=== PATIENT | female | born 1985 | race Caucasian/White ===

== ENCOUNTER → 2019-11-18 09:15 | Outpatient (CLI) | payer BC, SELFPAY ==
[2019-11-18 09:03] VITALS: BMI 45.0
--- NOTE | 2019-11-18 09:16 | RAD_ITS ---
STUDY: X-RAY CHEST REASON FOR EXAM: Female, 34 years old. Cough and fever TECHNIQUE: PA and lateral views of the chest. COMPARISON: None. FINDINGS: The lungs are clear and expanded. There is no demonstrated pleural abnormality. Normal size heart. Normal mediastinum and lori. Normal visualized pulmonary arteries. Normal visualized aortic arch and descending thoracic aorta. Normal visualized thoracic spine. Normal visualized ribs, clavicles, and shoulders. There is no demonstrated abnormality of the visualized soft tissue structures of the upper abdomen. RAD/Chest PA and Lateral IMPRESSION: Normal x-ray examination of the chest. Electronically Signed: Roland Carvajal, at 12:07 EST Tel , Service support ,
== END ==
PROVIDERS: Referring Provider Physician Assistant; Visit Provider Physician Assistant
DX: R05 Cough (principal)
CPT/HCPCS: 71046

== ENCOUNTER → 2021-11-08 16:45 | Outpatient (CLI) | payer BC, SELFPAY | PROVIDERS: Visit Provider Physician Assistant | DX: Z11.52 Encounter for screening for COVID-19 (principal) | CPT/HCPCS: 87635; U0005; U0003 ==

== ENCOUNTER 2021-11-26 16:36 | Outpatient (CLI) | payer BC, SELFPAY | END 2021-11-26 23:59 | disposition short-term general hospital (02) | LOC: LABSPEC 16:38 | PROVIDERS: Referring Provider Physician Assistant; Visit Provider Physician Assistant | DX: U07.1 COVID-19 (principal) | CPT/HCPCS: 87635; U0003; U0005 ==

== ENCOUNTER → 2025-08-09 | Outpatient (CLI) | payer BC, SELFPAY ==
--- NOTE | 2025-08-09 15:54 | MRI_ITS ---
PROCEDURE: LOWER EXT JOINT ONLY (ROUTINE) 08/09/2025 REASON FOR EXAM: POSSIBEL ACL TEAR TECHNIQUE: Procedure Code: MRILEJ Modality: MR Procedure: LOWER EXT JOINT ONLY (ROUTINE) T1, T2, multiplanar and multisequence images of the right knee were obtained without IV contrast administration. COMPARISON: COMPARISON : None FINDINGS: Bone Marrow: There is bony contusion in the posterior and central portion of the medial and lateral tibial plateau. There is subcortical edema in the central portion of the lateral femoral condyle. Cruciate ligaments: There is complete tear of the anterior cruciate ligament with lax components. The posterior cruciate appears intact. Collateral ligaments: There is a edema and attenuation in the mid and upper portion of the medial collateral ligament without laxity, grade 2 sprain. There is thickening and attenuation of the lateral collateral ligament without laxity, grade 2 sprain. The distal biceps tendon and popliteus appear intact. There is a edema and attenuation throughout the arcuate ligament with lax components, grade 2-3 sprain. Menisci: There is a bucket-handle tear of the medial meniscus with a component interposed in the intercondylar region and complex tear components in the remaining portion. The lateral meniscus appears intact. Extensor compartment: The distal quadriceps and patellar tendons appear intact. Effusion: There is a large effusion. MRI/Lower Ext Joint Only (Routine) IMPRESSION: There is bony contusion in the posterior and central portion of the medial and lateral tibial plateau. There is subcortical edema in the central portion of the lateral femoral condyl e. There is complete tear of the anterior cruciate ligament with lax components. There is a edema and attenuation in the mid and upper portion of the medial col lateral ligament without laxity, grade 2 sprain. There is thickening and attenuation of the lateral collateral ligament without laxity, grade 2 sprain. The distal biceps tendon and popliteus appear intact. There is a edema and attenuation throughout the arcuate ligament with lax compo nents, grade 2-3 sprain. There is a bucket-handle tear of the medial meniscus with a component interpose d in the intercondylar region and complex tear components in the remaining portion. There is a large effusion. Reading Location: [facility]
== END | disposition home or self-care (01) ==
LOC: MRI 15:50
PROVIDERS: PCP Physician Assistant; Referring Provider Orthopaedic Surgery Sports Medicine; Visit Provider Orthopaedic Surgery Sports Medicine
DX: M25.561 Pain in right knee (principal)
CPT/HCPCS: 73721

== ENCOUNTER 2025-08-24 08:31 | Day surgery (SDC) | payer BC, SELFPAY ==
--- NOTE | 2025-08-18 16:14 | PAT.ANESEVAL ---
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 When Was Last Pacemaker Check QUESTION #4 FULL TEXT: You/Your Family Experience fever (hyperthermia) with Anesthesia Last Oral Intake Last Oral intake: Last Oral Intake NPO since Meds taken in AM with sips of water? Meds patient instructed to take am of surgery PONV PONV - ambulance mechanic: PONV - ambulance mechanic Female Yes 08/18/25 14:06 HX of Motion Sickness Yes 08/18/25 14:06 HX of N/V After Surgery No 08/18/25 14:06 Non-Smoker No 08/18/25 14:06 Duration of Surgery greater Yes 08/18/25 14:06 than 60 minutes Number of Risk Factors 3 08/18/25 14:06 PONV Score Moderate Risk 08/18/25 14:06 Height & Weight Height & Weight: Anesthesia: Height & Weight Height 5 ft 7 in 07/21/25 13:28 Respiratory Assessment Respiratory Assessment - ambulance mechanic: Respiratory Tract Infection Hx - ambulance mechanic Hx Respiratory Tract Infection No 08/18/25 14:06 STOP Sleep Apnea STOP Sleep Apnea - ambulance mechanic: STOP Sleep Apnea - ambulance mechanic Hx Hypertension Yes: CONTOLLED WITH MED - 08/18/25 14:06 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 Has anyone observed you stop No 08/18/25 14:06 breathing during sleep? STOP Results Negative 08/18/25 14:06 QUESTION #5 FULL TEXT : Do you snore loudly (louder than talking or can be heard through closed doors)? 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 Specify any problems Hx of Preganancy in last 3 N/A 08/18/25 14:06 Months Nurse Filling Out Transfusion NBUCHER 08/18/25 14:06 & Questions: Date: 08/18/25 08/18/25 14:06 Time: 14:08 08/18/25 14:06 Patient unable to answer at this time (ie. confused, unrespo /Reproduction History /Reproductive History - ambulance mechanic: /Reproductive Hx- ambulance mechanic Hx Now No 08/18/25 14:06 Gestational Age (in weeks): EDC: Hx Hx Para Hx Section SAB No 08/18/25 14:06 [facility] Medical History (Updated 08/18/25 @ 15:23 by Yaritza Alejandro) Anxiety Arthritis History of hiatal hernia GERD (gastroesophageal reflux disease) Former smoker History of Holter monitoring Palpitations History of fracture of clavicle Sprain of lateral collateral ligament of right knee MCL sprain of right knee Tear of medial meniscus of right knee Right ACL tear Right knee pain Rectus diastasis Chronic bronchitis HTN (hypertension) Home Medications ?Medication ?Instructions ?Recorded ?Last Taken ?Type atenolol 25 mg tablet 25 mg PO DAILY 11/18/19 Unknown History lisinopril 20 mg tablet 20 mg PO DAILY 11/18/19 Unknown History multivitamin 1 tab PO QAM 01/03/25 Unknown History pantoprazole 40 mg tablet,delayed 40 mg PO QDAY 01/03/25 Unknown History release citalopram 30 mg capsule 30 mg PO QDAY 07/21/25 Unknown History Allergy/AdvReac Type Severity Reaction Status Date / Time No Known Allergies Allergy Verified 08/18/25 14:05 Family History Mother Heart disease Surgical History History of endoscopy Hx of skin graft Social History Smoking Status: Former smoker alcohol intake: current alcohol intake frequency: holidays/special occasions only Audit: Pertinent Findings Pertinent Findings Additional pertinent findings: 07/04/2021. Holter monitor. Base rhythm is sinus rhythm. 41 PACs representing <1% of QRSs. No triplets or runs. 1 isolated PVC representing <1%. No symptomatic events documented. Recommendation Anesthesia Recommendation Anesthesia recommendation: OPTIMIZED for anesthesia
--- NOTE | 2025-08-23 12:49 | EKG12_ITS ---
Test Reason : PRE OP Blood Pressure : */* mmHG Vent. Rate : 57 BPM Atrial Rate : 57 BPM P-R Int : 124 ms QRS Dur : 78 ms QT Int : 444 ms P-R-T Axes : 25 -22 7 degrees QTcB Int : 432 ms Sinus bradycardia with sinus arrhythmia Otherwise normal ECG Confirmed by CAMPOS MCLEOD, JACKIE ([id number]), avid editor BARRY ALLISON ([id number]) on 08/24/2025 8:58:36 AM Referred By: Jamey Heredia Confirmed By: JACKIE GASCA MD
[2025-08-23 13:32] LABS: Hematocrit 45.2 % (37-47); Hemoglobin 15.0 g/dL (12.0-15.0); Mean Corp Hgb Conc 33.2 g/dL (32-36); Mean Corpuscular Volume 90.2 fL (81-99); Mean Platelet Vol. 11.3 fl (6.2-12.0); Platelet Count 255 K/mm3 (150-450); RBC Distribution Width CV 13.9 % (11.6-14.6); RBC Distribution Width SD 46.5 fl (35.1-43.9); Red Blood Count 5.01 M/mm3 (4.2-5.4); White Blood Count 10.8 K/mm3 (4.4-11.0)
[2025-08-23 14:09] LABS: Anion Gap 12 (5-15); BUN 10 mg/dL (4-19); BUN/Creat Ratio 14.7 RATIO (10-20); Calcium,Total 9.4 mg/dL (7.6-11.0); Carbon Dioxide 24.2 mmol/L (21.0-32.0); Chloride 101 mmol/L (98-108); Glucose 103 mg/dL (70-99); Potassium 4.4 mmol/L (3.3-5.1)
--- NOTE | 2025-08-23 14:24 | PAT.ANE_ITS ---
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 When Was Last Pacemaker Check QUESTION #4 FULL TEXT: You/Your Family Experience fever (hyperthermia) with Anesthesia Last Oral Intake Last Oral intake: Last Oral Intake NPO since Meds taken in AM with sips of water? Meds patient instructed to take am of surgery PONV PONV - aco coordinator: PONV - aco coordinator Female Yes 08/18/25 14:06 HX of Motion Sickness Yes 08/18/25 14:06 HX of N/V After Surgery No 08/18/25 14:06 Non-Smoker No 08/18/25 14:06 Duration of Surgery greater Yes 08/18/25 14:06 than 60 minutes Number of Risk Factors 3 08/18/25 14:06 PONV Score Moderate Risk 08/18/25 14:06 Height & Weight Height & Weight: Anesthesia: Height & Weight Height 5 ft 7 in 07/21/25 13:28 Respiratory Assessment Respiratory Assessment - aco coordinator: Respiratory Tract Infection Hx - aco coordinator Hx Respiratory Tract Infection No 08/18/25 14:06 STOP Sleep Apnea STOP Sleep Apnea - aco coordinator: STOP Sleep Apnea - aco coordinator Hx Hypertension Yes: CONTOLLED WITH MED - 08/18/25 14:06 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 Has anyone observed you stop No 08/18/25 14:06 breathing during sleep? STOP Results Negative 08/18/25 14:06 QUESTION #5 FULL TEXT : Do you snore loudly (louder than talking or can be heard through closed doors)? 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 Specify any problems Hx of Preganancy in last 3 N/A 08/18/25 14:06 Months Nurse Filling Out Transfusion [facility]BU[facility]ER 08/18/25 14:06 & Questions: Date: 08/18/25 08/18/25 14:06 Time: 14:08 08/18/25 14:06 Patient unable to answer at this time (ie. confused, unrespo /Reproduction History /Reproductive History - aco coordinator: /Reproductive Hx- aco coordinator Hx Now No 08/18/25 14:06 Gestational Age (in weeks): EDC: Hx Hx Para Hx Section SAB No 08/18/25 14:06 Active Medications Active Medications: Current Medications Generic Name Dose Route Start Last Admin Trade Name Freq PRN Reason Stop Dose Admin Cefazolin Sodium 3 gm/ Sodium 115 mls @ 200 mls/hr 08/24/25 14:30 Chloride IV 08/24/25 15:04 INTRAOP ONE [facility] Medical History Anxiety Arthritis History of hiatal hernia GERD (gastroesophageal reflux disease) Former smoker History of Holter monitoring Palpitations History of fracture of clavicle Sprain of lateral collateral ligament of right knee MCL sprain of right knee Tear of medial meniscus of right knee Right ACL tear Right knee pain Rectus diastasis Chronic bronchitis HTN (hypertension) Home Medications ?Medication ?Instructions ?Recorded ?Last Taken ?Type atenolol 25 mg tablet 25 mg PO DAILY 11/18/19 12/18 07:00 History lisinopril 20 mg tablet 20 mg PO DAILY 11/18/19 09/ History multivitamin 1 tab PO QAM 01/03/25 History pantoprazole 40 mg tablet,delayed 40 mg PO QDAY 08/24/25 07:00 History release citalopram 30 mg capsule 30 mg PO QDAY 07/21/2508/24 07:00 History oxycodone-acetaminophen 5 mg-325 1 tab PO Q4H PRN pain 5 days #20 08/24/25 Unknown Rx mg tablet (Endocet) tabs Allergy/AdvReac Type Severity Reaction Status Date / Time No Known Allergies Allergy Verified 08/18/25 14:05 Family History Mother Heart disease Surgical History History of endoscopy Hx of skin graft Social History Smoking Status: Former smoker alcohol intake: current alcohol intake frequency: holidays/special occasions only Audit: Pertinent Findings HISTORY of Pertinent Findings History of Pertinent Findings: Additional Pertinent Findings Additional pertinent findings 07/04/2021. Holter monitor. 08/18/25 16:23 Base rhythm is sinus rhythm . 41 PACs representing <1% of QRSs. No triplets or runs. 1 isolated PVC representing <1%. No symptomatic events documented. Pertinent Findings EKG Perinent findings: August 23, 2025. Sinus bradycardia 57 bpm with sinus arrhythmia. Otherwise normal EKG. Recommendation Anesthesia Recommendation Anesthesia recommendation: OPTIMIZED for anesthesia
[2025-08-24] VITALS (9 sets, daily range): BP systolic 106–132; BP diastolic 61–96; PULSE 66–76; RESP 16–18; TEMP 36.1–37; O2SAT 95–98; BMI 43.1
[2025-08-24 08:52] LABS: Internal QC Validated? YES +Cl - CLEAR BKGD; Pregnancy, Urine Negative Negative; Record Kit Lot#,Urine Preg 0000980607
[2025-08-24] MEDS: Lactated Ringers 1,000 ML 15 ML IV (09:34)
--- NOTE | 2025-08-24 09:43 | PCM.PRE.AN2 ---
ASA Classification* ASA Classification ASA Classification: 3 (Morbid obesity ) Assessment & Plan Anesthesia* Anesthesia Assessment Anesthesia Assessment: Discussed sedation and/or anesthesia options, risks, benefits, and alternatives with patient/parents/legal guardian/POA. Questions invited. The patient/parents/legal guardian/POA seems to understand and agrees to proceed with anesthesia plan. Reviewed the physical assessment, medical history, allergy history and patient home medications list prior to surgery/procedure/anesthetic and documented any changes. Performed airway and anesthesia risk assessments. Anesthesia Type Anesthesia Type: General and Block History Source History Obtained from:: Patient and Chart Anesthesia Focused Assessment* Temperature: 97.4 F Pulse Rate: 70 Blood Pressure: 130/96 Respiratory Rate: 16 Pulse Ox: 98 Oxygen Delivery Method: Room Air Airway Assessment Mouth opens: >3 cm Mallampati Score: II Labs Anesthesia Preop lab: CBC WBC, (4.4-11.0) 10.8 K/mm3 08/23/25, 13:06 RBC, (4.2-5.4) 5.01 M/mm3 08/23/25, 13:06 Hgb, (12.0-15.0) 15.0 g/dL 08/23/25, 13:06 Hct, (37-47) 45.2 % 08/23/25, 13:06 Plt Count, (150-450) 255 K/mm3 08/23/25, 13:06 CHEMISTRY Potassium, (3.3-5.1) 4.4 mmol/L 08/23/25, 13:06 Sodium, (133-145) 137 mmol/L 08/23/25, 13:06 BUN, (4-19) 10 mg/dL 08/23/25, 13:06 Creatinine, (0.70-1.20) 0.71 mg/dL 08/23/25, 13:06 Glucose, (70-99) 103 mg/dL H 08/23/25, 13:06 COAG Urine Test Negative Negative Today, 08:45 Pre-Assessment Diagnosis/Proposed Procedure Planned Operative Procedure(s): (R) Right knee Arthroscopy, anterior cruciate ligament reconstruction, medial meniscus repair Anesthesia History 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 When Was Last Pacemaker Check QUESTION #4 FULL TEXT: You/Your Family Experience fever (hyperthermia) with Anesthesia Last Oral Intake Last Oral intake: Last Oral Intake NPO since 19:30 08/24/25 09:03 Meds taken in AM with sips of Yes 08/24/25 09:03 water? Meds patient instructed to atenolol .citalopram, 08/24/25 09:03 take am of surgery pantoprazole PONV PONV - crime scene specialist: PONV - crime scene specialist Female Yes 08/18/25 14:06 HX of Motion Sickness Yes 08/18/25 14:06 HX of N/V After Surgery No 08/18/25 14:06 Non-Smoker No 08/18/25 14:06 Duration of Surgery greater Yes 08/18/25 14:06 than 60 minutes Number of Risk Factors 3 08/18/25 14:06 PONV Score Moderate Risk 08/18/25 14:06 Height & Weight Height & Weight: Anesthesia: Height & Weight Height 5 ft 7 in 08/24/25 09:03 Weight: 125 kg 08/24/25 09:03 Body Mass Index (BMI) 43.1 08/24/25 09:03 Respiratory Assessment Respiratory Assessment - crime scene specialist: Respiratory Tract Infection Hx - crime scene specialist Hx Respiratory Tract Infection No 08/18/25 14:06 STOP Sleep Apnea STOP Sleep Apnea - crime scene specialist: STOP Sleep Apnea - crime scene specialist Hx Hypertension Yes: CONTOLLED WITH MED - 08/18/25 14:06 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 Has anyone observed you stop No 08/18/25 14:06 breathing during sleep? STOP Results Negative 08/18/25 14:06 QUESTION #5 FULL TEXT : Do you snore loudly (louder than talking or can be heard through closed doors)? 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 Specify any problems Hx of Preganancy in last 3 N/A 08/18/25 14:06 Months Nurse Filling Out Transfusion [facility]BUCHER 08/18/25 14:06 & Questions: Date: 08/18/25 08/18/25 14:06 Time: 14:08 08/18/25 14:06 Patient unable to answer at this time (ie. confused, unrespo /Reproduction History /Reproductive History - crime scene specialist: /Reproductive Hx- crime scene specialist Hx Now No 08/18/25 14:06 Gestational Age (in weeks): EDC: Hx Hx Para Hx Section SAB No 08/18/25 14:06 Active Medications Active Medications: Current Medications Generic Name Dose Route Start Last Admin Trade Name Freq PRN Reason Stop Dose Admin Cefazolin Sodium 3 gm/ Sodium 115 mls @ 200 mls/hr 08/24/25 14:30 08/24/25 09:16 Chloride IV 08/24/25 15:04 Not Given INTRAOP ONE Lactated Ringer's 1,000 mls @ 15 mls/hr 08/24/25 09:15 08/24/25 09:34 IV 15 mls/hr .Q48H JOHN Administration PFSH Medical History Anxiety Arthritis History of hiatal hernia GERD (gastroesophageal reflux disease) Former smoker History of Holter monitoring Palpitations History of fracture of clavicle Sprain of lateral collateral ligament of right knee MCL sprain of right knee Tear of medial meniscus of right knee Right ACL tear Right knee pain Rectus diastasis Chronic bronchitis HTN (hypertension) Home Medications ?Medication ?Instructions ?Recorded ?Last Taken ?Type atenolol 25 mg tablet 25 mg PO DAILY 11/18/19 08/24/25 07:00 History lisinopril 20 mg tablet 20 mg PO DAILY 11/18/19 08/23/25 History multivitamin 1 tab PO QAM 01/03/25 08/23/25 History pantoprazole 40 mg tablet,delayed 40 mg PO QDAY 01/03/25 08/24/25 07:00 History release citalopram 30 mg capsule 30 mg PO QDAY 07/21/25 08/24/25 07:00 History Allergy/AdvReac Type Severity Reaction Status Date / Time No Known Allergies Allergy Verified 08/18/25 14:05 Family History Mother Heart disease Surgical History History of endoscopy Hx of skin graft Social History Smoking Status: Former smoker alcohol intake: current alcohol intake frequency: holidays/special occasions only Addt'l Information Additional Findings: >4 Mets prior to injury Review of Systems (Anesthesia) ROS Narrative System reviewed and no additional complaints, except as documented. Physical Exam Const alert and oriented x3 Nutritional Appearance: morbidly obese Neck full ROM Resp normal respiratory effort and normal air movement Auscultation: clear to auscultation bilaterally Cardio regular rate and regular rhythm Back/Spine normal ROM Neuro oriented x3 and moves all extremities
--- NOTE | 2025-08-24 09:58 | PCM.HP.STD ---
HPI - General HPI Narrative JAYLEN CAPONE, is a 39 F who presents for right knee arthroscopy, anterior cruciate ligament reconstruction, medial meniscus repair. no change to h and p. rab, post op instructions, narcotic counselling. right knee marked. ok to proceed. plan for block. MR#: [id number] Acct: [id number] Name: JAYLEN CAPONE Rep #: [id number] : 1985 Provider: Dr. Jamey Heredia MD Age/Sex: 39/F Location: [facility] [email or web address] Status: Signed Intake Vital Signs 07/21/2513:28 Height 5 ft 7 in Weight: 280 lb 6 oz BMI 43.9 Intake Visit Reasons: RIGHT KNEE Chief Complaint: MRI Review Is patient in pain?: Yes Pain scale (1-10): 4 Allergies No Known Allergies Allergy (Verified 08/15/25 14:43) Medications ?Medication ?Instructions ?Recorded ?Confirmed ?Type atenolol 25 mg tablet 25 mg PO DAILY 11/18/19 08/15/25 History lisinopril 20 mg tablet 20 mg PO DAILY 11/18/19 08/15/25 History multivitamin 1 tab PO QAM 01/03/25 08/15/25 History pantoprazole 40 mg tablet,delayed 40 mg PO QDAY 01/03/25 08/15/25 History release citalopram 30 mg capsule 30 mg PO QDAY 07/21/25 08/15/25 History PFSH Medical History Sprain of lateral collateral ligament of right knee MCL sprain of right knee Tear of medial meniscus of right knee Right ACL tear Right knee pain Rectus diastasis Chronic bronchitis HTN (hypertension) Surgical History Hx of skin graft Family History Mother Heart disease Social History Smoking Status: Former smoker alcohol intake: current alcohol intake frequency: holidays/special occasions only HPI RIGHT KNEE Details: This documentation accurately reflects the service provided and the decisions made by me, Dr. Jamey Heredia MD 08/15/25 1024. Part of today?s visit was documented by [ ], acting as scribe. JAYLEN CAPONE is a 39 year old F here today for follow-up right knee MRI feels very unstable. Supplemental Info [facility] Imaging Services [address] [place], [place] [id number] Lower Ext Joint Only (Routine) MR#: [id number] Acct: [id number] Name: JAYLEN CAPONE Rep #: [id number] : 1985 F 39 From: Usama Rooney MD PCP: HUGO Hernández Status: REG CLI Study: Lower Ext Joint Only (Routine) Date of Exam: 08/09/25 Exam# [id number] Ordering Dr: Jamey Heredia MD PROCEDURE: LOWER EXT JOINT ONLY (ROUTINE) 08/09/2025 REASON FOR EXAM: POSSIBEL ACL TEAR TECHNIQUE: Procedure Code: MRILEJ Modality: MR Procedure: LOWER EXT JOINT ONLY (ROUTINE) T1, T2, multiplanar and multisequence images of the right knee were obtained without IV contrast administration. COMPARISON: COMPARISON : None FINDINGS: Bone Marrow: There is bony contusion in the posterior and central portion of the medial and lateral tibial plateau. There is subcortical edema in the central portion of the lateral femoral condyle. Cruciate ligaments: There is complete tear of the anterior cruciate ligament with lax components. The posterior cruciate appears intact. Collateral ligaments: There is a edema and attenuation in the mid and upper portion of the medial collateral ligament without laxity, grade 2 sprain. There is thickening and attenuation of the lateral collateral ligament without laxity, grade 2 sprain. The distal biceps tendon and popliteus appear intact. There is a edema and attenuation throughout the arcuate ligament with lax components, grade 2-3 sprain. Menisci: There is a bucket-handle tear of the medial meniscus with a component interposed in the intercondylar region and complex tear components in the remaining portion. The lateral meniscus appears intact. Extensor compartment: The distal quadriceps and patellar tendons appear intact. Effusion: There is a large effusion. MRI/Lower Ext Joint Only (Routine) IMPRESSION: There is bony contusion in the posterior and central portion of the medial and lateral tibial plateau. There is subcortical edema in the central portion of the lateral femoral condyle. There is complete tear of the anterior cruciate ligament with lax components. There is a edema and attenuation in the mid and upper portion of the medial collateral ligament without laxity, grade 2 sprain. There is thickening and attenuation of the lateral collateral ligament without laxity, grade 2 sprain. The distal biceps tendon and popliteus appear intact. There is a edema and attenuation throughout the arcuate ligament with lax components, grade 2-3 sprain. There is a bucket-handle tear of the medial meniscus with a component interposed in the intercondylar region and complex tear components in the remaining portion. There is a large effusion. Reading [facility] Coding Level of Care Code Off vis,est,level 4 Diagnoses Right knee pain M25.561 Right ACL tear S83.511A Tear of medial meniscus of right knee S83.241A MCL sprain of right knee S83.411A Sprain of lateral collateral ligament of right knee S83.421A Assessment and Plan Assessment and Plan (1) Right knee pain: Status: Acute Plan: 39 F with R knee complete tear of the anterior cruciate ligament with lax components, Edema and attenuation in the mid and upper portion of the medial collateral ligament without laxity, grade 2 sprain. Thickening and attenuation of the lateral collateral ligament without laxity, grade 2 sprain. Bucket-handle tear of the medial meniscus with a component interposed in the intercondylar region and complex tear components in the remaining portion. I explained the diagnosis prognosis and different treatment options. This is more recommended for surgery especially to address the bucket-handle tear of the medial meniscus. Leaving that alone would be very high rates of the subsequent osteoarthritis pain and disability in the knee. That being said to fix this that would be also indicated to perform an ACL reconstruction as well to protect the repair. These are both important stabilizers to the knee and the patient has instability sensations as well. Will try to get this done as soon as possible. Surgery would be in the form of a right knee arthroscopy, anterior cruciate ligament reconstruction, medial meniscus repair. I typically do these with quadriceps tendon autograft and internal brace. The patient would be on crutches with the brace for the first 6 weeks due to the meniscus repair with 9 months before going back to pivoting sports. They understood wished to go ahead with the surgery signed the consent form today. Pros and cons risks and benefits were discussed with the patient including but not limited to infection, pain, stiffness, bleeding, damage to surrounding structures, neurovascular injury, recurrence or retear, failure or wear of hardware or fixation, instability, fracture, deep vein thrombosis and pulmonary embolism, anesthetic risks, , patient dissatisfaction, need for further surgery and other risks. Patient understood and wished to proceed with surgery, and signed the informed consent documentation. Risk of Re tear is about 5% (2) Right ACL tear: Status: Acute (3) Tear of medial meniscus of right knee: Status: Acute (4) MCL sprain of right knee: Status: Acute (5) Sprain of lateral collateral ligament of right knee: Status: Acute Ortho Exam General General: Yes no acute distress Neurologic: Yes alert and Yes oriented x3 Psychologic: Yes reasonable and appropriate Right Knee Skin/Wound: Yes CDI, No erythema, No ecchymosis and No swelling [facility] Medical History Anxiety Arthritis History of hiatal hernia GERD (gastroesophageal reflux disease) Former smoker History of Holter monitoring Palpitations History of fracture of clavicle Sprain of lateral collateral ligament of right knee MCL sprain of right knee Tear of medial meniscus of right knee Right ACL tear Right knee pain Rectus diastasis Chronic bronchitis HTN (hypertension) Home Medications ?Medication ?Instructions ?Recorded ?Last Taken ?Type atenolol 25 mg tablet 25 mg PO DAILY 11/18/19 08/24/25 07:00 History lisinopril 20 mg tablet 20 mg PO DAILY 11/18/19 08/23/25 History multivitamin 1 tab PO QAM 01/03/25 08/23/25 History pantoprazole 40 mg tablet,delayed 40 mg PO QDAY 01/03/25 08/24/25 07:00 History release citalopram 30 mg capsule 30 mg PO QDAY 07/21/25 08/24/25 07:00 History Allergy/AdvReac Type Severity Reaction Status Date / Time No Known Allergies Allergy Verified 08/18/25 14:05 Family History Mother Heart disease Surgical History History of endoscopy Hx of skin graft Social History Smoking Status: Former smoker alcohol intake: current alcohol intake frequency: holidays/special occasions only Vital Signs Vital Signs Vital Signs: 08/24/25 09:03 08/24/25 09:03 08/24/25 09:48 Temperature 97.4 F L 97.4 F L Temperature Source Temporal Pulse Rate 70 70 Respiratory Rate 16 16 Respiratory Pattern Normal Blood Pressure 130/96 H 130/96 H Blood Pressure Mean 107 Blood Pressure Source Monitor Blood Pressure Position Sitting Blood Pressure Location Right Arm Pulse Ox 98 98 Oxygen Delivery Method Room Air Room Air Weight Weight: 275 lb 9.245 oz Body Mass Index (BMI) 43.1 Results Lab / Micro Data 08/23/25 13:06 08/23/25 13:06 Labs: Laboratory Results - last 24 hr 08/23/25 13:06: WBC 10.8, RBC 5.01, Hgb 15.0, Hct 45.2, MCV 90.2, MCH 29.9, MCHC 33.2, RDW Std Deviation 46.5 H, RDW Coeff of [place]yan[place] 13.9, Plt Count 255, MPV 11.3, Sodium 137, Potassium 4.4, Chloride 101, Carbon Dioxide 24.2, Anion Gap 12, BUN 10, Creatinine 0.71, Est GFR (MDRD) Non-Af 113, BUN/Creatinine Ratio 14.7, Glucose 103 H, Calcium 9.4 08/24/25 08:45: Urine Test Negative
[2025-08-24] MEDS: Midazolam 2 MG/2 ML Syringe IV (10:02)
[2025-08-24] MEDS: Cefazolin 1 GM/5 ML Vial 3 GM IV (10:35)
[2025-08-24] MEDS: Lidocaine 1% (5 ml sdv) 5 ML Vial IV (10:35)
[2025-08-24] MEDS: Epinephrine (1 mg/ml) 1 MG/ML VIAL (10:46)
[2025-08-24] MEDS: fentaNYL 100 MCG/2 ML Ampul 200 MCG IV (11:55)
[2025-08-24] MEDS: dexMEDEtomidine 200 MCG/2 ML ML 16 MCG IV (11:57)
--- NOTE | 2025-08-24 12:10 | OP.PCM_ITS ---
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 Gymnastics Coach: jak Tasks completed by assisted living coordinator: Retracting Additional access services assistant?: No Type of Anesthesia: Block,Regional and General RN Documented Start/Stop Times: Operation Date: 08/24/25 10:10 Case Time Into Pre-Op 08/24/25 08:48 Anesthesia Start 08/24/25 10:29 Into Room 08/24/25 10:29 Out of Pre-Op 08/24/25 10:29 Procedure Start 08/24/25 10:46 Procedure End 08/24/25 12:06 Procedure Start Time: 10:46 Procedure Stop Time: 12:06 Select all DRAINS/GRAFTS/IMPLANTS that apply: Graft Graft details: quads auto graft Estimated Blood Loss: 50 Specimen collected: No Description of surgery: Patient brought to the operating room theater. Placed supine on the table. General anesthesia induced. 3 g IV Ancef administered prior to the procedure. SCD on the nonoperative leg. All bony prominences padded. Tourniquet applied to right thigh appropriately padded. Lower extremity prepped and draped in the usual sterile fashion allowing over 3 minutes drying time prior to draping. Stress positioner to the patient's right side. Preoperative timeout performed to confirm the site patient and the surgery. Began by elevating the limb inflating the tourniquet to 250mmHg. Use standard anterolateral and anteromedial arthroscopy portals. Did a full diagnostic arthroscopy. Cartilage in PF and medial compartment normal, focal area 1x1.5cm grade 2-3 injury tibial side lateral plateau. No loose bodies. Lateral meniscus had flap tear at the posterior horn, did a partial lateral meniscectomy there. Root stable and rest of meniscus stable. ACL had a full-thickness tear I debrided the remnant identified the empty lateral back wall identified the capsular reflection. Medial meniscus bucket handle tear from posterior horn to mid body. Reduced. Rasped edges of meniscus tear. Used 5 arthrex all inside meniscus repair device sutures, vertical mattress. Sutures cut short, and stable after. I then turned my attention to obtaining the quadriceps tendon autograft. I made a transverse incision centered at the quadriceps tendon insertion at the patella. Carried the dissection down through skin and subcutaneous tissue achieved meticulous hemostasis. Identified the distal quadriceps took a one third central strip of this for about 6.5 cm long and a 9 mm size graft with the quadriceps pro Arthrex harvester. Truncated the graft to get to the back table. Shortened to 63 mm long. I used the standard technique with the fiber stitch and whip stitching fiber tags on each hand with the button on the femoral side on the ABS loop on the tibial side. This measured 9.5mm tibia, and 9mm femur. Graft placed on tension. I turned my attention back to the knee. I used the all inside retrograde drilling technique using a third-generation flip cutter drills. Placed the femoral tunnel low and posterior at the origin for the prior ACL retrograde drilled for 3 cm for a 4 cm long total tunnel 9mm cleared away any bone dust and passed the sutures out the anterior medial portal which I had also placed a passport cannula. I then drilled for the tibial side in line with the anterior horn lateral meniscus. Again the tunnel length was 3.5 cm in a retrograde drilled 9.5 mm for 2.5 cm total tunnel length cleared away any bone dust and then passed the suture through the anterior medial portal. I then passed the ACL up into the femoral tunnel and then back down into the tibial tunnel flipping the button on the lateral aspect of the femur. I had marked the graft at 2 cm and then pulled on the free ends of the femoral side to deliver the graft into the tunnel. I then cycled the knee 15 times and then attach the tibial button to the ABS button loop and pulled on the free ends of the suture to tighten the graft up in place. This achieved excellent fixation limited the pivot shift and the Merna. Suture was cut short. Also had brought the internal brace out through the ABS button on the tibial side and then attach this without tension in full extension to a Arthrex 4.75 mm bio composite swivel lock anchor for the internal brace construct. The tourniquet let down meticulous hemostasis achieved wounds irrigated. Subcutaneous tissue closed with 2-0 Vicryl suture skin with 3-0 Monocryl. Skin cleaned with wet dry dressing followed by application of Steri-Strips Adaptic 4 x 4 gauze ABD dressing and loose wrapped CARMEN bandage. Patient woken up from the GA, transfer off the operating table taken to postanesthetic care unit in stable condition. All sponge needle instrument counts were correct no complications plan to the patient discharged home according to day surgery criteria follow-up in the office this week. WBAT and crutches 6 weeks. No hx of VTE, no smoking, no OCPs, so decided against VTE prophylaxis post op (but asked patient to do asa 81 bid if she is particulary immobile post op). cpt [id number], [id number], [id number] Surgical Findings: as above Complications Complications: No Admit VTE Documentation VTE Present on Admission: No VTE Mechan Device Prophylaxis: SCD's VTE Pharm Prophylaxis ordered?: No Reason prophylaxis not ordered: Treatment Not Indicated
--- NOTE | 2025-08-24 12:16 | DCINST_ITS ---
Discharge Instructions Diet Discharge Diet: No restrictions Activity Discharge Activity: May Shower and Use Crutches Weight Bearing Status: Weight bearing as tolerated Lifting Restrictions: brace locked straight, crutches x 6 weeks Keep extremity elevated above heart level: Operative Extremity Dressing / Incision Call your doctor if your incision/area has: Continuous Slow Oozing, Sudden Increased Bleeding, Increased Pain/ Swelling, Increased Redness, Foul Smelling Discharge and Swelling at the incision site Call your doctor if you observe: Fever of 101 or Higher, Coldness, Increased Pain and Numbness or Tingling Change Dressing in: leave in place till F/U Cleanse incision/area with: Do not get Incision Wet Follow Up Care Please Follow Up With: Jamey Heredia MD When: within 2 weeks Test Results: Test results from this visit will be discussed in further detail at your follow- up appointment, if applicable. Discharge Plan Admission Attending Provider: Jamey Heredia Primary Care Provider: Ramirez Arriola Instructions Patient Instructions: ACL Injury Surg Print Language: Nicaraguan Discharge Orders/Prescriptions Prescriptions: New oxycodone-acetaminophen [Endocet] 5-325 mg tablet 1 tab PO Q4H MDD 6 PRN (Reason: pain) 5 Days Qty: 20 0RF No Action atenolol 25 mg tablet 25 mg PO DAILY lisinopril 20 mg tablet 20 mg PO DAILY pantoprazole 40 mg tablet,delayed release (DR/EC) 40 mg PO QDAY multivitamin Tablet 1 tab PO QAM citalopram 30 mg capsule 30 mg PO QDAY Referrals / Follow Up: Ramirez Arriola PA [Primary Care Provider, Urgent Care] Jamey Heredia MD [Med Staff - Active Staff, Orthopedics] Disposition Disposition (needs filled in before D/C Order can be placed): Home, Self Care
--- NOTE | 2025-08-24 12:20 | PCM.POST.ANE ---
Anesthesia: Postop Eval I Current Vital Signs Temperature: 98.6 F Pulse Rate: 74 Blood Pressure: 125/70 Respiratory Rate: 18 Pulse Ox: 98 Assessment Airway patent: Yes Spontaneous unlabored respirations: Yes nausea: No Vomiting: No Anesthesia Complication: No Fluid Hydration Crystalloid volume administer (ml): 1,100 Total IV fluid infused: 1,100 Progress Note Anesthesia document: Postop Eval 1 completed: Yes
--- NOTE | 2025-08-24 14:30 | POSTOPAN2_ITS ---
Anesthesia Postop Eval I Sum Postop Eval Completion status Anesthesia document: Postop Eval 1 completed: Yes Anesthesia Postop Eval I Summary Anesthesia Postop Eval I Summary: Anesthesia Postop Eval I: Assessment Summary Airway patent Yes 08/24/25 12:20 [email or web address] Spontaneous unlabored Yes 08/24/25 12:20 [email or web address] respirations Mental status nausea No 08/24/25 12:20 [email or web address] Vomiting No 08/24/25 12:20 [email or web address] Anesthesia Postop Eval I: Fluid Summary Crystalloid volume administer 1,100 08/24/25 12:20 [email or web address] (ml) Colloids volume administered ( ml) Blood Product volume administered (ml) Total IV fluid infused 1,100 08/24/25 12:20 [email or web address] Anesthesia Postop Eval I: Summary Notes Anesthesia Complication No 08/24/25 12:20 [email or web address] Anesthesia Complication Comment: Post-operative progress note Anesthesia: Postop Eval II Evaluation Mental status: Awake and Calm Pain Level: 2 nausea: No Vomiting: No Complications Anesthesia Complication: No
--- NOTE | 2025-08-24 14:30 | PCM.POSTANE2 ---
Anesthesia Postop Eval I Sum Postop Eval Completion status Anesthesia document: Postop Eval 1 completed: Yes Anesthesia Postop Eval I Summary Anesthesia Postop Eval I Summary: Anesthesia Postop Eval I: Assessment Summary Airway patent Yes 08/24/25 12:20 [email or web address] Spontaneous unlabored Yes 08/24/25 12:20 [email or web address] respirations Mental status nausea No 08/24/25 12:20 [email or web address] Vomiting No 08/24/25 12:20 [email or web address] Anesthesia Postop Eval I: Fluid Summary Crystalloid volume administer 1,100 08/24/25 12:20 [email or web address] (ml) Colloids volume administered ( ml) Blood Product volume administered (ml) Total IV fluid infused 1,100 08/24/25 12:20 [email or web address] Anesthesia Postop Eval I: Summary Notes Anesthesia Complication No 08/24/25 12:20 [email or web address] Anesthesia Complication Comment: Post-operative progress note Anesthesia: Postop Eval II Evaluation Mental status: Awake and Calm Pain Level: 2 nausea: No Vomiting: No Complications Anesthesia Complication: No
== END 2025-08-24 13:40 | disposition home or self-care (01) ==
LOC: SDC 08:33 → AC 08:35
PROVIDERS: Anesthesiology; PCP Physician Assistant; Referring Provider Orthopaedic Surgery Sports Medicine; Visit Provider Orthopaedic Surgery Sports Medicine
PROC: (CPT 29881; principal; 2025-08-24 09:50)
DX: S83.511A Sprain of anterior cruciate ligament of right knee, initial encounter (principal); S83.241A Other tear of medial meniscus, current injury, right knee, initial encounter; S83.421A Sprain of lateral collateral ligament of right knee, initial encounter; S83.411A Sprain of medial collateral ligament of right knee, initial encounter; I10 Essential (primary) hypertension; K21.9 Gastro-esophageal reflux disease without esophagitis; Z79.899 Other long term (current) drug therapy; Z87.891 Personal history of nicotine dependence; X58.XXXA Exposure to other specified factors, initial encounter
CPT/HCPCS: 29881; 29888; 29882; 64450; 01400; 36415; 80048; 81025; 85027; 93005; C1713; J2405

== ENCOUNTER 2025-09-09 14:54 | Outpatient (RCR) | payer BC, SELFPAY | END 2025-09-09 19:00 | disposition home or self-care (01) | LOC: PT 14:54 | PROVIDERS: PCP Physician Assistant; Referring Provider Orthopaedic Surgery Sports Medicine; Visit Provider Orthopaedic Surgery Sports Medicine | DX: S83.241D Other tear of medial meniscus, current injury, right knee, subsequent encounter (principal); S83.511D Sprain of anterior cruciate ligament of right knee, subsequent encounter ==